=== PATIENT | female | born 1995 | race Caucasian/White ===

== ENCOUNTER 2020-11-27 17:24 | Emergency (ER) | payer MEDICAID ==
[~2020-11-27] VITALS: Ht 149.9 cm; Wt 47.6 kg
[2020-11-27 17:27] VITALS: BP_SYST 116
[2020-11-27] MEDS ORDERED: ACETAMINOPHEN 325 MG TABLET PO ONE (18:15)
[2020-11-27 19:03] LABS: MEAN CORPUSCULAR HGB CONC 34 % (32-36); MONOCYTES # (AUTO) 0.4 K/uL (0.0-1.0); RED CELL DISTRIBUTION WIDTH 13.9 % (9.0-15.0)
[2020-11-27 19:11] LABS: POTASSIUM 3.8 mmol/L (3.5-5.1)
[2020-11-27 19:13] LABS: BASOPHILS % (AUTO) 0.5 % (0.0-2.0); EOSINOPHILS # (AUTO) 0.1 K/uL (0.0-0.4); EOSINOPHILS % (AUTO) 1.1 % (0.0-4.0); HEMATOCRIT 31.6 % (36-48); HEMOGLOBIN 10.8 g/dL (12.0-16.0); LYMPHOCYTES # (AUTO) 1.7 K/uL (1.0-5.5); LYMPHOCYTES % (AUTO) 22.4 % (20.5-51.5); MEAN CORPUSCULAR HEMOGLOBIN 30 pg (27-31); MEAN CORPUSCULAR VOLUME 88 fL (79.0-98.0); MONOCYTES % (AUTO) 5.8 % (1.7-9.3); NEUTROPHILS # (AUTO) 5.3 K/uL (1.8-7.7); NEUTROPHILS % (AUTO) 70.2 % (40.0-70.0); PLATELET COUNT (AUTO) 224 K/uL (130-430); RED BLOOD CELL COUNT(AUTO) 3.57 MIL/uL (4.2-6.2); WHITE BLOOD COUNT (AUTO) 7.5 K/uL (4.8-10.8)
[2020-11-27 19:15] LABS: CALCIUM 8.5 mg/dL (8.4-11.0)
[2020-11-27 19:16] LABS: CREATININE 0.43 mg/dL (0.55-1.30)
[2020-11-27 19:17] LABS: ALBUMIN 3.3 g/dL (3.4-4.8); TOTAL BILIRUBIN 0.3 mg/dL (0.0-1.0)
[2020-11-27 19:51] LABS: INR 0.9 (0.8-1.2); PROTHROMBIN TIME 9.4 SECS (9.5-12.5)
[2020-11-27 20:00] LABS: BILIRUBIN,URINE NEGATIVE (NEGATIVE); BLOOD, URINE NEGATIVE (NEGATIVE); COLOR,URINE YELLOW (YELLOW); GLUCOSE,URINE NEGATIVE (NEGATIVE); KETONES,URINE NEGATIVE (NEGATIVE); LEUKOCYTE ESTERASE ,URINE NEGATIVE (NEGATIVE); NITRITE, URINE NEGATIVE (NEGATIVE); PH,URINE 7.5 (5.0-8.0); PROTEIN URINE NEGATIVE (NEGATIVE)
[2020-11-27 20:15] LABS: CLARITY/URINE SLIGHTLY HAZY (CLEAR)
[2020-11-27 22:14] VITALS: BP_SYST 115
== END 2020-11-27 22:14 | disposition home or self-care (01) ==
LOC: SED 17:24
DX: O9A.212 Injury, poisoning and certain other consequences of external causes complicating pregnancy, second trimester (principal); S39.91XA Unspecified injury of abdomen, initial encounter; Z3A.17 17 weeks gestation of pregnancy; V49.9XXA Car occupant (driver) (passenger) injured in unspecified traffic accident, initial encounter; Y93.89 Activity, other specified; Y92.413 State road as the place of occurrence of the external cause; Y99.8 Other external cause status
CPT/HCPCS: 36415; 76805-TC; 80053; 81003; 85025; 85379; 85384-TC; 85610-TC; 85730-TC; 86900; 86901; 99284

== ENCOUNTER 2024-04-27 19:20 | Emergency (ER) | payer OTHER, MEDICAID ==
[~2024-04-27] VITALS: Ht 149.9 cm; Wt 53.1 kg
[2024-04-27 19:29] VITALS: BP_SYST 119; PULSE 65; RESP 20; TEMP 97.1; O2SAT 99
[2024-04-27] MEDS: KETOROLAC TROMETHAMINE 60 MG/2 ML VIAL IM ONE (22:06)
[2024-04-27] MEDS: MORPHINE 4 MG INJ. 4 MG/ML VIAL IM ONE (22:54)
[2024-04-27] MEDS ORDERED: NAPR-1172 PO (23:20)
[2024-04-27 23:25] VITALS: BP_SYST 117; PULSE 62; RESP 17; TEMP 97.2; O2SAT 99
== END 2024-04-27 23:25 | disposition home or self-care (01) ==
LOC: SED 19:20
DX: S30.1XXA Contusion of abdominal wall, initial encounter (principal); S20.219A Contusion of unspecified front wall of thorax, initial encounter; Z79.899 Other long term (current) drug therapy; V89.2XXA Person injured in unspecified motor-vehicle accident, traffic, initial encounter; Y93.89 Activity, other specified; Y92.89 Other specified places as the place of occurrence of the external cause; Y99.8 Other external cause status
CPT/HCPCS: 99285; 71250; 74176; 81025; 96372; J1885; J2270